=== PATIENT | male | born 1985 | race Caucasian/White ===

== ENCOUNTER 2018-06-15 14:56 | Emergency (ER) | payer OTHER ==
[~2018-06-15] VITALS: Ht 185.4 cm; Wt 119.8 kg
[2018-06-15] MEDS ORDERED: NOHOMEMEDICATIONS (15:12)
[2018-06-15 15:33] LABS: ABSOLUTE BASOPHILS 0.1 thou/uL (0.0-0.2); ABSOLUTE EOSINOPHILS 0.1 thou/uL (0.0-0.7); ABSOLUTE LYMPHOCYTES 2.2 thou/uL (0.8-5.3); ABSOLUTE MONOCYTES 0.5 thou/uL (0.0-1.2); BASOPHILS 0.7 %; EOSINOPHILS 1.5 %; HEMATOCRIT 42.5 % (42.0-52.0); HEMOGLOBIN 14.2 gm/dL (14.0-18.0); LYMPHOCYTES 28.2 %; MCH 27.2 pg (26.0-34.0); MCHC 33.3 g/dL (28.0-37.0); MCV 81.7 fL (80.0-100.0); MPV 8.3 fl. (7.2-11.1); NUCLEATED RBCS 0 /100WBC; PLATELET COUNT* 205 thou/uL (150-400); POLYS 63.6 %; RDW-CV 14.1 % (10.5-14.5); WBC 7.9 thou/uL (4.0-11.0)
[2018-06-15 15:40] LABS: CREATININE 0.9 mg/dL (0.6-1.3); POTASSIUM 3.6 mmol/L (3.5-5.1)
[2018-06-15 15:45] LABS: TOTAL BILIRUBIN 0.3 mg/dL (<0.1-1.0); TOTAL PROTEIN 7.5 g/dL (6.4-8.2)
[2018-06-15 17:55] VITALS: BP 139/64
--- NOTE | 2018-06-16 10:37 | EKG ---
[place] [address] ELECTROCARDIOGRAM REPORT Name: ELIZABETH URIBE Room: [facility]#: [id number] Admission: 06/15/18 Attend Phys: Discharge: 06/15/18 Date of : 83 Report #: [id number] THIS REPORT FOR: //name// [facility] ED Test Date: 2018-06-15 Test Time: 15:16:34 Pat Name: ELIZABETH URIBE Department: Room: Gender: M [employer] Firer/Fireman: Chago BLAKE : 1985 Requested By: Cely Baird Order Number: [id number] MD: Will Pete Measurements Intervals [place] Rate: 78 P: 36 CO: 168 QRS: 27 QRSD: 118 T: 20 QT: 427 QTc: 487 Interpretive Statements Sinus rhythm Nonspecific intraventricular conduction delay No previous ECG available for comparison Electronically Signed On 06-16-2018 10:37:22 CDT by Will Pete [email or web address] <ELECTRONICALLY SIGNED> By: Will Pete MD, [facility] 06/16/18 1037 1516 1516 Will Pete MD, FACC /EPI
== END 2018-06-15 18:11 | disposition home or self-care (01) ==
LOC: M.ERS 14:56
PROVIDERS: Nurse Practitioner Family
DX: R42 Dizziness and giddiness (principal); R11.0 Nausea; Z88.5 Allergy status to narcotic agent

== ENCOUNTER 2019-08-19 18:25 | Emergency (ER) | payer OTHER ==
[~2019-08-19] VITALS: Ht 188 cm; Wt 108.9 kg
[~2019-08-19 18:25] MED LIST: NOHOMEMEDICATIONS
[2019-08-19 18:31] VITALS: BP 118/62
[2019-08-19] MEDS ORDERED: OMEPRAZOLE 20 M20 M1 PO (18:33)
[2019-08-19] MEDS ORDERED: FLEXERIL PO (18:33)
[2019-08-19] MEDS ORDERED: KEFLEX500 M2 PO (19:06)
[2019-08-19] MEDS ORDERED: NEOSPORIN OIN28.3 GM TOP (19:06)
== END 2019-08-19 19:18 | disposition home or self-care (01) ==
LOC: M.ERS 18:25
DX: S61.232A Puncture wound without foreign body of right middle finger without damage to nail, initial encounter (principal); W22.8XXA Striking against or struck by other objects, initial encounter; Y93.89 Activity, other specified; Y92.512 Supermarket, store or market as the place of occurrence of the external cause; Y99.0 Civilian activity done for income or pay

== ENCOUNTER 2021-05-16 14:19 | Emergency (ER) | payer OTHER ==
[~2021-05-16] VITALS: Ht 188 cm; Wt 108.9 kg
[~2021-05-16 14:19] MED LIST changes: +FLEXERIL PO; +KEFLEX500 M2 PO; +NEOSPORIN OIN28.3 GM TOP; +OMEPRAZOLE 20 M20 M1 PO
[2021-05-16] MEDS ORDERED: DESYREL150 MG PO (14:43)
[2021-05-16] MEDS ORDERED: EFFEXOR XR75 MG PO (14:43)
[2021-05-16] MEDS ORDERED: MEDROLDOSEPACK PO (16:38)
[2021-05-16 16:43] VITALS: BP 112/57
== END 2021-05-16 16:44 | disposition home or self-care (01) ==
LOC: M.ERS 14:19
DX: M54.9 Dorsalgia, unspecified (principal); M25.512 Pain in left shoulder; Z90.49 Acquired absence of other specified parts of digestive tract; Z79.899 Other long term (current) drug therapy; Z88.5 Allergy status to narcotic agent